=== PATIENT | female | born 2000 | race Caucasian/White ===

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

== ENCOUNTER 2020-10-06 11:08 | Emergency (ER) | payer OTHER, BC ==
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
[2020-10-06 12:57] VITALS: BP 113/73; PULSE 58
== END 2020-10-06 13:05 | disposition home or self-care (01) ==
LOC: VM.ED 11:08
DX: R42 Dizziness and giddiness (principal); V49.40XA Driver injured in collision with unspecified motor vehicles in traffic accident, initial encounter
CPT/HCPCS: 99283; 99284